=== PATIENT | female | born 1970 | race African-American/Black ===

== ENCOUNTER 2018-05-20 10:23 | Outpatient (CLI) | payer OTHER | END 2018-05-20 19:38 | disposition home or self-care (01) | LOC: US 10:23 | DX: N20.0 Calculus of kidney (principal) ==

== ENCOUNTER 2018-11-20 10:39 | Outpatient (CLI) | payer OTHER | END 2018-11-20 19:18 | disposition home or self-care (01) | LOC: MAMMO 10:39 | DX: Z12.31 Encounter for screening mammogram for malignant neoplasm of breast (principal) ==

== ENCOUNTER 2019-01-03 10:57 | Outpatient (CLI) | payer OTHER | END 2019-01-03 19:51 | disposition home or self-care (01) | LOC: MAMMO 10:57 | DX: R92.8 Other abnormal and inconclusive findings on diagnostic imaging of breast (principal) ==